=== PATIENT | male | born 2000 | race Caucasian/White ===

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

== ENCOUNTER 2019-03-26 16:47 | Emergency (ER) | payer MEDICAID, OTHER, SELFPAY ==
[~2019-03-26] VITALS: Ht 182.9 cm; Wt 65.7 kg
[~2019-03-26 16:47] MED LIST changes: +BACITRACIN TOP; +CLON-412 PO; +CLONI1TA PO; +COMBAER6 INH; +IBUP1TAB7 PO; -LAMO200T PO; +LAMO200T2 PO; +MINI1CAP PO; +MONT10TA2 PO; -OLAN20TA PO; +OLAN20TA14 PO; +OLAN5ZYD PO; +POLYMYXIN TOP; +PRAZ2CAP PO; +TIZA4CAP PO; +TRAZ-252 PO; +TRAZ1TAB10 PO; -TRAZ50TA11 PO; +ZANA4TAB PO
[2019-03-26 18:06] LABS: HEMATOCRIT 42.8 % (42.0-52.0); HEMOGLOBIN 14.9 g/dl (13.5-17.5); MEAN CORPUSCULAR HEMOGLOBIN 31.8 pg (27.0-33.0); MEAN CORPUSCULAR HGB CONC 34.8 g/dl (32.0-36.5); MEAN CORPUSCULAR VOLUME 91.3 fl (80.0-96.0); PLATELET COUNT, AUTOMATED 232 10^3/uL (150-450); RED BLOOD COUNT 4.69 10^6/uL (4.30-6.10); WHITE BLOOD COUNT 4.5 10^3/uL (4.0-10.0)
[2019-03-26 18:54] LABS: ACETAMINOPHEN LEVEL < 2.0 UG/ML (10.0-30.0); ALBUMIN 4.7 GM/DL (3.2-5.2); ALT/SGPT 31 U/L (12-78); BILIRUBIN,DIRECT 0.3 MG/DL (0.0-0.2); BLOOD UREA NITROGEN 16 MG/DL (7-18); CALCIUM LEVEL 9.7 MG/DL (8.5-10.1); CARBON DIOXIDE LEVEL 27 MEQ/L (21-32); CHLORIDE LEVEL 108 MEQ/L (98-107); CREATININE FOR GFR 1.06 MG/DL (0.70-1.30); ETHYL ALCOHOL (ETHANOL) 0.005 % (0.000-0.010); GLUCOSE, FASTING 87 MG/DL (70-100); POTASSIUM SERUM 4.3 MEQ/L (3.5-5.1); SALICYLATE LEVEL < 1.7 MG/DL (5.0-30.0); SODIUM LEVEL 142 MEQ/L (136-145); THYROID STIMULATING HORMONE 0.321 uIU/ML (0.463-3.98); TOTAL PROTEIN 7.7 GM/DL (6.4-8.2)
[2019-03-26 18:55] VITALS: BP 113/63
== END 2019-03-26 18:57 | disposition home or self-care (01) ==
LOC: M ED 16:47
DX: F15.20 Other stimulant dependence, uncomplicated (principal); F31.9 Bipolar disorder, unspecified; J45.909 Unspecified asthma, uncomplicated; F41.9 Anxiety disorder, unspecified; F90.9 Attention-deficit hyperactivity disorder, unspecified type; Z72.0 Tobacco use; F10.10 Alcohol abuse, uncomplicated
CPT/HCPCS: 80048; 80076; 84443; 85027; 99283; G0480

== ENCOUNTER 2019-03-28 01:16 | Emergency (ER) | payer SELFPAY ==
[~2019-03-28] VITALS: Ht 182.9 cm; Wt 65.9 kg
[2019-03-28 06:58] LABS: EOS # 0.1 10^3/uL (0.0-0.50); EOS % 3.3 % (0.0-3.0); HEMATOCRIT 39.5 % (42.0-52.0); HEMOGLOBIN 13.6 g/dl (13.5-17.5); LYMPH # 1.5 10^3/uL (1.5-6.5); LYMPH % 38.5 % (24.0-44.0); MEAN CORPUSCULAR HEMOGLOBIN 31.8 pg (27.0-33.0); MEAN CORPUSCULAR HGB CONC 34.4 g/dl (32.0-36.5); MEAN CORPUSCULAR VOLUME 92.3 fl (80.0-96.0); MONO # 0.4 10^3/uL (0.0-0.8); NEUTROPHILS # 1.8 10^3/uL (1.8-7.7); NEUTROPHILS % 46.2 % (36.0-66.0); PLATELET COUNT, AUTOMATED 174 10^3/uL (150-450); RED BLOOD COUNT 4.28 10^6/uL (4.30-6.10); WHITE BLOOD COUNT 3.9 10^3/uL (4.0-10.0)
[2019-03-28 07:15] LABS: ERYTHROCYTE SEDIMENTATION RATE 4 mm/hr (0-15)
[2019-03-28 07:22] LABS: BLOOD UREA NITROGEN 15 MG/DL (7-18); C REACTIVE PROTEIN QUANTITATIV < 0.30 MG/DL (0.00-0.30); CALCIUM LEVEL 8.6 MG/DL (8.5-10.1); CARBON DIOXIDE LEVEL 26 MEQ/L (21-32); CHLORIDE LEVEL 111 MEQ/L (98-107); CREATININE FOR GFR 0.95 MG/DL (0.70-1.30); GLUCOSE, FASTING 104 MG/DL (70-100); SODIUM LEVEL 142 MEQ/L (136-145)
--- NOTE | 2019-03-28 07:47 | REP ---
Right knee two views : There is no fracture or dislocation. Mineralization and joint spaces are normal. There are no calcifications or foreign bodies. Impression: Negative right knee . Electronically Signed by Kulwinder Peñaloza MD 03/28/2019 07:39 A
[2019-03-28 07:50] LABS: APPEARANCE, URINE CLEAR (CLEAR); BACTERIA, URINE AUTO 1+ (NEGATIVE); BILIRUBIN, URINE AUTO NEGATIVE (NEGATIVE); BLOOD, URINE BLOOD NEGATIVE (NEGATIVE); COLOR, URINE YELLOW (YELLOW); GLUCOSE, URINE (UA) AUTO NEGATIVE (NEGATIVE); KETONE, URINE AUTO NEGATIVE (NEGATIVE); LEUKOCYTE ESTERASE, URINE AUTO 1+ (NEGATIVE); MUCUS, URINE SMALL (NEGATIVE); NITRITE, URINE AUTO NEGATIVE (NEGATIVE); PROTEIN, URINE AUTO NEGATIVE (NEGATIVE); RBC, URINE AUTO 5 /HPF (0-3); SPECIFIC GRAVITY URINE AUTO 1.025 (1.002-1.035); SQUAMOUS EPITHELIAL CELL UR AU 0 /HPF (0-6); WBC, URINE AUTO 28 /HPF (0-3)
--- NOTE | 2019-03-28 07:56 | REP ---
Right hip single AP view : There is no fracture or dislocation. Mineralization and joint spaces are normal. There are no calcifications or foreign bodies. Impression: Negative right hip single AP view . Electronically Signed by Kulwinder Peñaloza MD 03/28/2019 07:48 A
--- NOTE | 2019-03-28 07:57 | REP ---
Right femur four views including right hip : There is no fracture or dislocation. Mineralization and joint spaces are normal. There are no calcifications or foreign bodies. Impression: Negative right femur including right hip . Electronically Signed by Kulwinder Peñaloza MD 03/28/2019 07:48 A
[2019-03-28 07:58] LABS: AMPHETAMINES LEVEL URINE NEGATIVE (NEGATIVE); BARBITURATES URINE NEGATIVE (NEGATIVE); BENZODIAZEPINES URINE NEGATIVE (NEGATIVE); CANNABINOIDS URINE POSITIVE (NEGATIVE); COCAINE METABOLITE URINE NEGATIVE (NEGATIVE); METHADONE URINE NEGATIVE (NEGATIVE); OPIATES URINE NEGATIVE (NEGATIVE); PHENCYCLIDINE URINE NEGATIVE (NEGATIVE)
[2019-03-28] MEDS ORDERED: MACR100C43 PO (08:40)
[2019-03-28 08:51] VITALS: BP 107/57
== END 2019-03-28 08:48 | disposition home or self-care (01) ==
LOC: M ED 01:16
DX: N39.0 Urinary tract infection, site not specified (principal); S70.01XA Contusion of right hip, initial encounter; S70.11XA Contusion of right thigh, initial encounter; X58.XXXA Exposure to other specified factors, initial encounter; Y92.018 Other place in single-family (private) house as the place of occurrence of the external cause; J45.909 Unspecified asthma, uncomplicated; G89.29 Other chronic pain; M54.9 Dorsalgia, unspecified; F17.210 Nicotine dependence, cigarettes, uncomplicated; F19.20 Other psychoactive substance dependence, uncomplicated

== ENCOUNTER 2019-03-30 13:19 | Emergency (ER) | payer MEDICAID, SELFPAY ==
[~2019-03-30] VITALS: Ht 182.9 cm; Wt 65.7 kg
[~2019-03-30 13:19] MED LIST changes: +MACR100C43 PO
[2019-03-30 23:05] VITALS: BP 122/56
== END 2019-03-30 23:06 | disposition short-term general hospital (02) ==
LOC: M ED 13:19
DX: R45.851 Suicidal ideations (principal); F32.9 Major depressive disorder, single episode, unspecified; F41.9 Anxiety disorder, unspecified; F43.10 Post-traumatic stress disorder, unspecified; F90.9 Attention-deficit hyperactivity disorder, unspecified type; J45.909 Unspecified asthma, uncomplicated; Z79.2 Long term (current) use of antibiotics

== ENCOUNTER 2019-04-11 01:51 | Emergency (ER) | payer MEDICAID, SELFPAY ==
[~2019-04-11 01:51] MED LIST changes: -LAMO200T2 PO; +LAMO200T3 PO
[2019-04-11] MEDS ORDERED: NS 1,000 ML IV ONE (02:15)
[2019-04-11 02:35] LABS: BASO % 0.6 % (0.0-1.0); EOS # 0.1 10^3/uL (0.0-0.50); EOS % 0.9 % (0.0-3.0); HEMATOCRIT 41.3 % (42.0-52.0); LYMPH % 15.9 % (24.0-44.0); MEAN CORPUSCULAR HGB CONC 33.9 g/dl (32.0-36.5); MEAN CORPUSCULAR VOLUME 91.6 fl (80.0-96.0); MONO # 0.3 10^3/uL (0.0-0.8); MONO % 4.7 % (0.0-5.0); NEUTROPHILS % 77.4 % (36.0-66.0); PLATELET COUNT, AUTOMATED 199 10^3/uL (150-450); RED BLOOD COUNT 4.51 10^6/uL (4.30-6.10); WHITE BLOOD COUNT 6.4 10^3/uL (4.0-10.0)
[2019-04-11 03:12] LABS: ACETAMINOPHEN LEVEL < 2.0 UG/ML (10.0-30.0); ALT/SGPT 82 U/L (12-78); BILIRUBIN,DIRECT 0.3 MG/DL (0.0-0.2); BILIRUBIN,TOTAL 0.9 MG/DL (0.2-1.0); BLOOD UREA NITROGEN 11 MG/DL (7-18); CALCIUM LEVEL 8.4 MG/DL (8.5-10.1); CARBON DIOXIDE LEVEL 26 MEQ/L (21-32); CHLORIDE LEVEL 108 MEQ/L (98-107); CPK CREATINE PHOSPHOKINASE 134 U/L (39-308); CREATININE FOR GFR 1.01 MG/DL (0.70-1.30); ETHYL ALCOHOL (ETHANOL) < 0.003 % (0.000-0.010); GLUCOSE, FASTING 169 MG/DL (70-100); POTASSIUM SERUM 3.7 MEQ/L (3.5-5.1); SALICYLATE LEVEL < 1.7 MG/DL (5.0-30.0); SODIUM LEVEL 144 MEQ/L (136-145); TOTAL PROTEIN 6.7 GM/DL (6.4-8.2)
[2019-04-11 04:15] VITALS: BP 120/63
[2019-04-11 05:04] LABS: AMPHETAMINES LEVEL URINE NEGATIVE (NEGATIVE); BARBITURATES URINE NEGATIVE (NEGATIVE); BENZODIAZEPINES URINE NEGATIVE (NEGATIVE); CANNABINOIDS URINE POSITIVE (NEGATIVE); COCAINE METABOLITE URINE NEGATIVE (NEGATIVE); METHADONE URINE NEGATIVE (NEGATIVE); OPIATES URINE NEGATIVE (NEGATIVE); PHENCYCLIDINE URINE NEGATIVE (NEGATIVE)
--- NOTE | 2019-04-11 22:15 | ECGEPIP ---
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
== END 2019-04-11 04:30 | disposition home or self-care (01) ==
LOC: M ED 01:51
DX: F19.10 Other psychoactive substance abuse, uncomplicated (principal); F10.10 Alcohol abuse, uncomplicated; F17.210 Nicotine dependence, cigarettes, uncomplicated
CPT/HCPCS: 36415; 80048; 80076; 80307; 82550; 84443; 85025; 93005; 93041; 94760; 99285; G0480

== ENCOUNTER 2019-07-05 13:46 | Emergency (ER) | payer MEDICAID, OTHER ==
[~2019-07-05] VITALS: Ht 182.9 cm; Wt 79.0 kg
[~2019-07-05 13:46] MED LIST changes: +LAMO200T2 PO; -LAMO200T3 PO
[2019-07-05 14:25] LABS: BASO % 0.4 % (0.0-1.0); EOS # 0.2 10^3/uL (0.0-0.5); EOS % 2.2 % (0.0-3.0); HEMATOCRIT 47.3 % (42.0-52.0); HEMOGLOBIN 15.9 g/dl (13.5-17.5); LYMPH # 1.3 10^3/uL (1.5-5.0); LYMPH % 16.9 % (24.0-44.0); MEAN CORPUSCULAR HEMOGLOBIN 30.6 pg (27.0-33.0); MEAN CORPUSCULAR HGB CONC 33.6 g/dl (32.0-36.5); MONO # 0.5 10^3/uL (0.0-0.8); NEUTROPHILS # 5.6 10^3/uL (1.5-8.5); PLATELET COUNT, AUTOMATED 221 10^3/uL (150-450); WHITE BLOOD COUNT 7.7 10^3/uL (4.0-10.0)
[2019-07-05 14:55] LABS: ALBUMIN 4.3 GM/DL (3.2-5.2); ALT/SGPT 56 U/L (12-78); AMYLASE 33 U/L (25-115); BILIRUBIN,DIRECT 0.3 MG/DL (0.0-0.2); BILIRUBIN,TOTAL 1.6 MG/DL (0.2-1.0); BLOOD UREA NITROGEN 14 MG/DL (7-18); CALCIUM LEVEL 9.3 MG/DL (8.5-10.1); CARBON DIOXIDE LEVEL 28 MEQ/L (21-32); CHLORIDE LEVEL 109 MEQ/L (98-107); CREATININE FOR GFR 0.92 MG/DL (0.70-1.30); GLUCOSE, FASTING 85 MG/DL (70-100); LIPASE 72 U/L (73-393); POTASSIUM SERUM 4.2 MEQ/L (3.5-5.1); SODIUM LEVEL 143 MEQ/L (136-145); TOTAL PROTEIN 7.4 GM/DL (6.4-8.2)
[2019-07-05 14:56] LABS: ETHYL ALCOHOL (ETHANOL) < 0.003 % (0.000-0.010)
[2019-07-05 14:58] LABS: AMPHETAMINES LEVEL URINE NEGATIVE (NEGATIVE); BARBITURATES URINE NEGATIVE (NEGATIVE); BENZODIAZEPINES URINE NEGATIVE (NEGATIVE); CANNABINOIDS URINE POSITIVE (NEGATIVE); COCAINE METABOLITE URINE NEGATIVE (NEGATIVE); METHADONE URINE NEGATIVE (NEGATIVE); OPIATES URINE NEGATIVE (NEGATIVE); PHENCYCLIDINE URINE NEGATIVE (NEGATIVE)
--- NOTE | 2019-07-05 15:08 | REP ---
LEFT RIB SERIES: Four views, left ribs performed. No fracture or bone lesion is seen. An accompanying view of the chest demonstrates no acute infiltrate. Heart and mediastinum are within normal limits. IMPRESSION: Negative left rib series. Electronically Signed by Kulwinder Garcia MD 07/05/2019 05:19 P
[2019-07-05] MEDS ORDERED: HYDR-3363 (15:10)
[2019-07-05] MEDS ORDERED: ABIL1TAB11 PO (15:10)
[2019-07-05] MEDS ORDERED: ELIM5CRE2 TOP (15:16)
[2019-07-05] MEDS ORDERED: VENTAER INH (15:18)
[2019-07-05 16:49] VITALS: BP 138/74
--- NOTE | 2019-07-05 17:58 | ECGEPIP ---
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
== END 2019-07-05 16:52 | disposition home or self-care (01) ==
LOC: M ED 13:46
DX: F19.10 Other psychoactive substance abuse, uncomplicated (principal); F41.9 Anxiety disorder, unspecified; B86 Scabies; J45.909 Unspecified asthma, uncomplicated; F31.9 Bipolar disorder, unspecified; F43.10 Post-traumatic stress disorder, unspecified; F90.9 Attention-deficit hyperactivity disorder, unspecified type; F25.9 Schizoaffective disorder, unspecified; Z79.899 Other long term (current) drug therapy
CPT/HCPCS: 36415; 71101; 80048; 80076; 80307; 82150; 83690; 85025; 93005; 99284; G0480

== ENCOUNTER 2019-07-12 17:23 | Emergency (ER) | payer OTHER ==
[~2019-07-12] VITALS: Ht 182.9 cm; Wt 78.9 kg
[2019-07-12 17:23] VITALS: BP 134/78
[~2019-07-12 17:23] MED LIST changes: +ABIL1TAB11 PO; +ELIM5CRE2 TOP; +HYDR-3363
--- NOTE | 2019-07-12 20:39 | ED PDOC ---
Post-Departure Follow-Up PATIENT LEFT WITHOUT BEING SEEN BY PROVIDER WALLY MARADIAGA DO Jul 12, 2019 20:39
== END 2019-07-12 20:19 | disposition left against medical advice (07) ==
LOC: M ED 17:23
DX: Z53.21 Procedure and treatment not carried out due to patient leaving prior to being seen by health care provider (principal)

== ENCOUNTER 2019-07-29 00:51 | Emergency (ER) | payer OTHER ==
[~2019-07-29] VITALS: Ht 182.9 cm; Wt 84.2 kg
[2019-07-29] MEDS ORDERED: IBUPROFEN 600 MG TAB PO ONE (01:15)
[2019-07-29 02:36] VITALS: BP 114/70
--- NOTE | 2019-07-29 08:39 | REP ---
Right hand series: Four views. History: Punching injury. Comparison study: July 22, 2017. Findings: There is an impacted angulated fracture of the distal end of the fifth metacarpal with associated soft-tissue swelling. The angulation is apex dorsal. No other fracture is seen. No opaque foreign body is appreciated. Impression: Impacted and angulated boxer's fracture of the distal end of the fifth metacarpal with associated soft-tissue swelling. Electronically Signed by Abdulkadir Hagan MD 07/29/2019 03:30 P
--- NOTE | 2019-07-29 08:53 | REP ---
Right wrist series: Four views. History: Punching injury. Findings: Four views of the right wrist demonstrate the impacted angulated and slightly comminuted fracture of the distal end of the fifth metacarpal as described in the hand series report. Carpal bones appear intact. Joint spaces are preserved. No other fracture is seen. Impression: Boxer's fracture. No other fracture noted. Electronically Signed by Abdulkadir Hagan MD 07/29/2019 03:31 P
== END 2019-07-29 02:42 | disposition home or self-care (01) ==
LOC: M ED 00:51
DX: S62.366A Nondisplaced fracture of neck of fifth metacarpal bone, right hand, initial encounter for closed fracture (principal); S60.221A Contusion of right hand, initial encounter; W22.09XA Striking against other stationary object, initial encounter; Y92.811 Bus as the place of occurrence of the external cause; F41.9 Anxiety disorder, unspecified; F32.9 Major depressive disorder, single episode, unspecified; J45.909 Unspecified asthma, uncomplicated; F90.9 Attention-deficit hyperactivity disorder, unspecified type; F43.10 Post-traumatic stress disorder, unspecified; F20.9 Schizophrenia, unspecified; F17.210 Nicotine dependence, cigarettes, uncomplicated

== ENCOUNTER 2024-02-11 18:24 | Inpatient (IN) | payer MEDICAID, OTHER, SELFPAY ==
[~2024-02-11] VITALS: Ht 182.9 cm; Wt 82.7 kg
[~2024-02-11 18:24] MED LIST changes: -LAMO200T2 PO; +LAMO200T3 PO; +MONT-5 PO; -MONT10TA2 PO; +MONT10TA97 PO; -SING10TA32 PO
[2024-02-11 19:47] LABS: HEMATOCRIT 46.7 % (42.0-52.0); HEMOGLOBIN 16.3 g/dl (13.5-17.5); MEAN CORPUSCULAR HGB CONC 34.9 g/dl (32.0-36.5); PLATELET COUNT, AUTOMATED 267 10^3/uL (150-450); RED BLOOD COUNT 5.25 10^6/uL (4.30-6.10)
[2024-02-11 20:11] LABS: THYROID STIMULATING HORMONE 0.516 uIU/ML (0.55-4.78)
[2024-02-11 20:14] LABS: ETHYL ALCOHOL (ETHANOL) 0.004 % (0.000-0.010)
[2024-02-11 20:16] LABS: ALBUMIN 4.5 G/DL (3.2-5.2); ALKALINE PHOSPHATASE 114 U/L (46-116); ALT/SGPT 25 U/L (7.0-40); AST/SGOT 8 U/L (<34); BILIRUBIN,TOTAL 3.1 MG/DL (0.3-1.2); BLOOD UREA NITROGEN 17 MG/DL (9-23); CALCIUM LEVEL 9.7 MG/DL (8.5-10.1); CARBON DIOXIDE LEVEL 29 MMOL/L (20-31); CHLORIDE LEVEL 107 MMOL/L (98-107); CREATININE FOR GFR 1.04 MG/DL (0.70-1.30); GLOMERULAR FILTRATION RATE > 60.0 (>60); GLUCOSE, FASTING 114 MG/DL (60-100); POTASSIUM SERUM 4.1 MMOL/L (3.5-5.1); SALICYLATE LEVEL < 3.0 MG/DL (<30); SODIUM LEVEL 141 MMOL/L (136-145); TOTAL PROTEIN 7.2 G/DL (5.7-8.2)
[2024-02-11 20:17] LABS: AMPHETAMINES LEVEL URINE NEGATIVE (NEGATIVE); BARBITURATES URINE NEGATIVE (NEGATIVE); BENZODIAZEPINES URINE NEGATIVE (NEGATIVE); COCAINE METABOLITE URINE NEGATIVE (NEGATIVE); METHADONE URINE NEGATIVE (NEGATIVE); OPIATES URINE NEGATIVE (NEGATIVE); PHENCYCLIDINE URINE NEGATIVE (NEGATIVE)
[2024-02-11 20:20] LABS: CANNABINOIDS URINE POSITIVE (NEGATIVE)
[2024-02-11] MEDS ORDERED: diphenhydrAMINE 25MG CAP PO PRN (22:00)
[2024-02-11] MEDS ORDERED: MOM 30ML SUSPENSION UDC PO PRN (22:00)
[2024-02-11] MEDS ORDERED: ACETAMINOPHEN TAB 650MG DOSE (2X325MG) PO PRN (22:00)
[2024-02-11] MEDS ORDERED: MAALOX 30 ML SUSP *UDC PO PRN (22:00)
[2024-02-11] MEDS ORDERED: IBUPROFEN 400MG TAB PO PRN (22:00)
[2024-02-11] MEDS ORDERED: VRAY6CAP PO (22:24)
[2024-02-11] MEDS ORDERED: PRAZ1CAP PO (22:29)
[2024-02-11] MEDS ORDERED: CLON1TAB17 PO (22:32)
[2024-02-11] MEDS ORDERED: HOME MED LIST COMPLETE! XX SCH (22:55)
[2024-02-11 23:41] VITALS: BP 127/69; TEMP 98.1; O2SAT 98
[2024-02-11] MEDS: traZODone 50 MG TAB PO PRN (23:50)
[2024-02-12 06:57] VITALS: BP 110/59; TEMP 97.3; O2SAT 98
[2024-02-12] MEDS: NICOTINE POLACRILEX 2 MG GUM PO PRN (11:44)
[2024-02-12 16:20] VITALS: BP 108/62; TEMP 97.4
[2024-02-12] MEDS: CARIPRAZINE 1.5MG CAPSULE (VRAYLAR) PO SCH (21:01)
[2024-02-12] MEDS: IBUPROFEN 800 MG TAB PO PRN (21:01)
[2024-02-12] MEDS: PRAZOSIN 1 MG CAP PO SCH (21:03)
[2024-02-12] MEDS: hydrOXYzine 50 MG TAB PO ONE (22:54)
[2024-02-13 06:39] VITALS: BP 134/58; TEMP 97.8; O2SAT 100
[2024-02-13 07:59] LABS: CHOLESTEROL RISK RATIO 6.34 (<5); CPK CREATINE PHOSPHOKINASE 64 U/L (46-171); FREE T4 1.23 NG/DL (0.89-1.76); HDL CHOLESTEROL 25.7 MG/DL (>40); LDL CHOLESTEROL 115.1 MG/DL (<100); NON-HDL-C 137.3 MG/DL; THYROID STIMULATING HORMONE 1.691 uIU/ML (0.55-4.78)
[2024-02-13 08:00] LABS: ALBUMIN 4.2 G/DL (3.2-5.2); BILIRUBIN,TOTAL 3.3 MG/DL (0.3-1.2); TOTAL PROTEIN 6.8 G/DL (5.7-8.2)
[2024-02-13] MEDS: OMEGA-3 1000MG CAPSULE PO SCH (09:22)
[2024-02-13 09:38] LABS: ALBUMIN 4.4 G/DL (3.2-5.2); ALKALINE PHOSPHATASE 106 U/L (46-116); ALT/SGPT 28 U/L (7.0-40); AST/SGOT 12 U/L (<34); BILIRUBIN,TOTAL 3.4 MG/DL (0.3-1.2); BLOOD UREA NITROGEN 16 MG/DL (9-23); CALCIUM LEVEL 9.9 MG/DL (8.5-10.1); CARBON DIOXIDE LEVEL 26 MMOL/L (20-31); CHLORIDE LEVEL 106 MMOL/L (98-107); CREATININE FOR GFR 0.98 MG/DL (0.70-1.30); GLOMERULAR FILTRATION RATE > 60.0 (>60); GLUCOSE, FASTING 102 MG/DL (60-100); POTASSIUM SERUM 4.3 MMOL/L (3.5-5.1); SODIUM LEVEL 138 MMOL/L (136-145); TOTAL PROTEIN 6.8 G/DL (5.7-8.2)
[2024-02-13 15:59] VITALS: BP 125/66; TEMP 96.9; O2SAT 98
[2024-02-13 21:12] VITALS: BP 120/74
[2024-02-13] MEDS: CARIPRAZINE 3MG CAPSULE (VRAYLAR) PO SCH (21:12)
[2024-02-14 06:13] VITALS: BP 125/57; TEMP 98.4; O2SAT 97
[2024-02-14] MEDS ORDERED: FISH1CAP26 PO (10:46)
[2024-02-14] MEDS ORDERED: VRAY3CAP PO (10:46)
[2024-02-14] MEDS ORDERED: TRAZ-252 PO (10:46)
[2024-02-14] MEDS ORDERED: PRAZ1CAP PO (10:46)
[2024-02-14] MEDS ORDERED: NICO2GUM PO (10:46)
== END 2024-02-14 11:15 | disposition home or self-care (01) | DRG 753 ==
LOC: M ED 18:24 → M ED INP 21:57 → M PSY 23:13
PROVIDERS: ADMIT Student in an Organized Health Care Education/Training Program; ATTEND Student in an Organized Health Care Education/Training Program
DX: F31.60 Bipolar disorder, current episode mixed, unspecified (principal); Z91.141 Patient's other noncompliance with medication regimen due to financial hardship; F17.210 Nicotine dependence, cigarettes, uncomplicated; F43.10 Post-traumatic stress disorder, unspecified; F90.9 Attention-deficit hyperactivity disorder, unspecified type; F17.290 Nicotine dependence, other tobacco product, uncomplicated; Z81.8 Family history of other mental and behavioral disorders; T43.596A Underdosing of other antipsychotics and neuroleptics, initial encounter; J45.909 Unspecified asthma, uncomplicated; F12.10 Cannabis abuse, uncomplicated; M22.01 Recurrent dislocation of patella, right knee; R07.89 Other chest pain; Z79.899 Other long term (current) drug therapy; Z88.0 Allergy status to penicillin; Z88.8 Allergy status to other drugs, medicaments and biological substances; Z81.3 Family history of other psychoactive substance abuse and dependence; Z62.810 Personal history of physical and sexual abuse in childhood; Z56.6 Other physical and mental strain related to work; Z91.048 Other nonmedicinal substance allergy status

== ENCOUNTER 2024-03-06 15:28 | Emergency (ER) | payer MEDICAID ==
[~2024-03-06] VITALS: Ht 182.9 cm; Wt 86.4 kg
[~2024-03-06 15:28] MED LIST changes: +CLON1TAB17 PO; +FISH1CAP26 PO; +NICO2GUM PO; +VRAY3CAP PO; +VRAY6CAP PO
[2024-03-06 15:37] VITALS: BP 130/71; TEMP 99.6; O2SAT 96
== END 2024-03-06 16:08 | disposition left against medical advice (07) ==
LOC: EDBD 15:28 → M ED 15:28
DX: Z53.21 Procedure and treatment not carried out due to patient leaving prior to being seen by health care provider (principal)

== ENCOUNTER 2024-06-14 11:00 | Inpatient (IN) | payer MEDICAID, OTHER ==
[~2024-06-14] VITALS: Ht 182.9 cm; Wt 86.4 kg
[~2024-06-14 11:00] MED LIST changes: -OLAN20TA14 PO; +OLAN20TA53 PO
[2024-06-14 11:52] LABS: HEMATOCRIT 40.4 % (42.0-52.0); HEMOGLOBIN 14.4 g/dl (13.5-17.5); MEAN CORPUSCULAR HEMOGLOBIN 31.9 pg (27.0-33.0); MEAN CORPUSCULAR HGB CONC 35.6 g/dl (32.0-36.5); MEAN CORPUSCULAR VOLUME 89.4 fl (80.0-96.0); PLATELET COUNT, AUTOMATED 294 10^3/uL (150-450); RED BLOOD COUNT 4.52 10^6/uL (4.30-6.10); WHITE BLOOD COUNT 11.3 10^3/uL (4.0-10.0)
[2024-06-14 12:15] LABS: ETHYL ALCOHOL (ETHANOL) < 0.003 % (0.000-0.010)
[2024-06-14 12:17] LABS: ALKALINE PHOSPHATASE 75 U/L (46-116); ALT/SGPT 65 U/L (7.0-40); AST/SGOT 92 U/L (<34); BILIRUBIN,DIRECT 1.5 MG/DL (<0.4); BILIRUBIN,TOTAL 4.1 MG/DL (0.3-1.2); BLOOD UREA NITROGEN 25 MG/DL (9-23); CALCIUM LEVEL 9.9 MG/DL (8.5-10.1); CARBON DIOXIDE LEVEL 17 MMOL/L (20-31); CHLORIDE LEVEL 104 MMOL/L (98-107); CREATININE FOR GFR 1.05 MG/DL (0.70-1.30); GLOMERULAR FILTRATION RATE > 60.0 (>60); GLUCOSE, FASTING 72 MG/DL (60-100); POTASSIUM SERUM 4.5 MMOL/L (3.5-5.1); SALICYLATE LEVEL < 3.0 MG/DL (<30); SODIUM LEVEL 138 MMOL/L (136-145); TOTAL PROTEIN 7.8 G/DL (5.7-8.2)
[2024-06-14 12:21] LABS: THYROID STIMULATING HORMONE 0.353 uIU/ML (0.55-4.78)
[2024-06-14 12:27] LABS: BARBITURATES URINE NEGATIVE (NEGATIVE); BENZODIAZEPINES URINE NEGATIVE (NEGATIVE); COCAINE METABOLITE URINE NEGATIVE (NEGATIVE); METHADONE URINE NEGATIVE (NEGATIVE); OPIATES URINE NEGATIVE (NEGATIVE); PHENCYCLIDINE URINE NEGATIVE (NEGATIVE)
[2024-06-14 12:29] LABS: AMPHETAMINES LEVEL URINE POSITIVE (NEGATIVE); CANNABINOIDS URINE POSITIVE (NEGATIVE)
[2024-06-14] MEDS ORDERED: CLIN150C17 PO (13:41)
[2024-06-14] MEDS ORDERED: HOME MED LIST COMPLETE! XX SCH (13:45)
[2024-06-14] MEDS ORDERED: ONDANSETRON 4MG 2ML VIAL IV ONE (14:40)
[2024-06-14 15:19] LABS: CPK CREATINE PHOSPHOKINASE 2023 U/L (46-171)
[2024-06-14] MEDS: NS 1,000 ML IV ONE (16:56)
[2024-06-15] MEDS: CARIPRAZINE 3MG CAPSULE (VRAYLAR) PO SCH (09:00)
[2024-06-15] MEDS ORDERED: ACETAMINOPHEN TAB 650MG DOSE (2X325MG) PO PRN (10:55)
[2024-06-15] MEDS ORDERED: MAALOX 30 ML SUSP *UDC PO PRN (10:55)
[2024-06-15] MEDS ORDERED: diphenhydrAMINE 25MG CAP PO PRN (10:55)
[2024-06-15] MEDS ORDERED: MOM 30ML SUSPENSION UDC PO PRN (10:55)
[2024-06-15 12:08] VITALS: BP 127/71; TEMP 97; O2SAT 99
[2024-06-15] MEDS: NICOTINE POLACRILEX 2 MG GUM PO PRN (15:24)
[2024-06-15 15:46] VITALS: BP 132/80; TEMP 98.4; O2SAT 98
[2024-06-15] MEDS: PRAZOSIN 1 MG CAP PO SCH (20:22)
[2024-06-15] MEDS: traZODone 50 MG TAB PO PRN (20:22)
[2024-06-16 06:20] VITALS: BP 132/65; TEMP 97.6; O2SAT 98
[2024-06-16] MEDS: IBUPROFEN 400MG TAB PO PRN (10:22)
[2024-06-16 15:23] VITALS: BP 142/83; TEMP 97.3; O2SAT 98
[2024-06-17 06:46] VITALS: BP 122/59; TEMP 97.9; O2SAT 100
[2024-06-17 16:20] VITALS: BP 141/67; TEMP 98.6; O2SAT 98
[2024-06-17] MEDS: OLANZapine ORAL DISINTEGRATING TAB 5MG PO PRN (18:19)
[2024-06-17 21:14] VITALS: BP 135/71
[2024-06-18 06:30] VITALS: BP 127/56; TEMP 97.3; O2SAT 98
[2024-06-18] MEDS ORDERED: PRAZ1CAP PO (09:40)
[2024-06-18] MEDS ORDERED: VRAY6CAP PO (09:40)
== END 2024-06-18 11:05 | disposition home or self-care (01) | DRG 751 ==
LOC: M ED 11:00 → M ED INP 06-15 10:51 → M PSY 06-15 12:25
PROVIDERS: ADMIT Psychiatry & Neurology Psychiatry; ATTEND Psychiatry & Neurology Psychiatry
DX: F33.9 Major depressive disorder, recurrent, unspecified (principal); F15.90 Other stimulant use, unspecified, uncomplicated; R45.851 Suicidal ideations; F17.210 Nicotine dependence, cigarettes, uncomplicated; F17.290 Nicotine dependence, other tobacco product, uncomplicated; F43.10 Post-traumatic stress disorder, unspecified; J45.909 Unspecified asthma, uncomplicated; G89.29 Other chronic pain; M25.569 Pain in unspecified knee; F90.9 Attention-deficit hyperactivity disorder, unspecified type; Z81.8 Family history of other mental and behavioral disorders; Z62.810 Personal history of physical and sexual abuse in childhood; Z79.2 Long term (current) use of antibiotics; Z79.899 Other long term (current) drug therapy; Z88.1 Allergy status to other antibiotic agents; Z88.8 Allergy status to other drugs, medicaments and biological substances; Z91.048 Other nonmedicinal substance allergy status; Z91.51 Personal history of suicidal behavior; Z59.00 Homelessness unspecified

== ENCOUNTER 2024-06-27 21:57 | Emergency (ER) | payer MEDICAID, OTHER ==
[~2024-06-27] VITALS: Ht 182.9 cm; Wt 77.0 kg
[~2024-06-27 21:57] MED LIST changes: +CLIN150C17 PO
[2024-06-27 22:14] VITALS: TEMP 99.5
[2024-06-27] MEDS: NS 1,000 ML IV ONE (23:32)
[2024-06-27] MEDS: LORazepam 2 MG/ML 1ML VIAL IV STA (23:32)
[2024-06-28 00:25] LABS: BASO # 0.1 10^3/uL (0.0-0.2); BASO % 0.8 % (0.0-1.0); EOS # 0.1 10^3/uL (0.0-0.5); EOS % 1.8 % (0.0-3.0); HEMOGLOBIN 14.8 g/dl (13.5-17.5); LYMPH # 1.6 10^3/uL (1.5-5.0); LYMPH % 26.4 % (24.0-44.0); MEAN CORPUSCULAR HEMOGLOBIN 31.6 pg (27.0-33.0); MEAN CORPUSCULAR HGB CONC 35.2 g/dl (32.0-36.5); MEAN CORPUSCULAR VOLUME 89.7 fl (80.0-96.0); MONO # 0.8 10^3/uL (0.0-0.8); MONO % 12.5 % (2.0-8.0); NEUTROPHILS # 3.5 10^3/uL (1.5-8.5); NEUTROPHILS % 58.2 % (36.0-66.0); PLATELET COUNT, AUTOMATED 276 10^3/uL (150-450); RED BLOOD COUNT 4.68 10^6/uL (4.30-6.10); WHITE BLOOD COUNT 6.1 10^3/uL (4.0-10.0)
[2024-06-28 00:37] LABS: ETHYL ALCOHOL (ETHANOL) 0.005 % (0.000-0.010)
[2024-06-28 00:38] LABS: ALBUMIN 4.2 G/DL (3.2-5.2); ALKALINE PHOSPHATASE 78 U/L (46-116); ALT/SGPT 50 U/L (7.0-40); AST/SGOT 26 U/L (<34); BILIRUBIN,TOTAL 2.8 MG/DL (0.3-1.2); BLOOD UREA NITROGEN 18 MG/DL (9-23); CARBON DIOXIDE LEVEL 25 MMOL/L (20-31); CHLORIDE LEVEL 107 MMOL/L (98-107); CREATININE FOR GFR 0.89 MG/DL (0.70-1.30); GLOMERULAR FILTRATION RATE > 60.0 (>60); GLUCOSE, FASTING 98 MG/DL (60-100); POTASSIUM SERUM 3.5 MMOL/L (3.5-5.1); SALICYLATE LEVEL < 3.0 MG/DL (<30); SODIUM LEVEL 140 MMOL/L (136-145); TOTAL PROTEIN 6.9 G/DL (5.7-8.2)
[2024-06-28 01:13] LABS: CPK CREATINE PHOSPHOKINASE 287 U/L (46-171)
[2024-06-28 01:38] LABS: CK-MB VALUE MASS 3.8 NG/ML (<3.6); MB/CK RELATIVE INDEX 1.32 (< OR =4)
[2024-06-28 06:00] VITALS: BP 123/63; O2SAT 96
== END 2024-06-28 06:47 | disposition home or self-care (01) ==
LOC: M ED 21:57
DX: R07.89 Other chest pain (principal); R94.31 Abnormal electrocardiogram [ECG] [EKG]; J45.909 Unspecified asthma, uncomplicated; F17.210 Nicotine dependence, cigarettes, uncomplicated; F15.10 Other stimulant abuse, uncomplicated; Z88.1 Allergy status to other antibiotic agents; Z91.048 Other nonmedicinal substance allergy status; Z79.2 Long term (current) use of antibiotics; Z79.899 Other long term (current) drug therapy
CPT/HCPCS: 80048; 80076; 80143; 82077; 82550; 82553; 84484; 85025; 93005; 96361; 96374; 99285; J2060

== ENCOUNTER 2024-07-09 08:09 | Emergency (ER) | payer OTHER ==
[~2024-07-09] VITALS: Ht 182.9 cm; Wt 79.9 kg
[2024-07-09 08:28] VITALS: BP 129/75; TEMP 98.2; O2SAT 98
== END 2024-07-09 09:03 | disposition left against medical advice (07) ==
LOC: M ED 08:09
DX: Z53.21 Procedure and treatment not carried out due to patient leaving prior to being seen by health care provider (principal)

== ENCOUNTER 2024-07-10 00:38 | Emergency (ER) | payer OTHER ==
[~2024-07-10] VITALS: Ht 182.9 cm; Wt 81.8 kg
[2024-07-10] MEDS: IBUPROFEN 600MG TAB PO ONE (01:10)
[2024-07-10 01:32] LABS: HEMATOCRIT 43.6 % (42.0-52.0); MEAN CORPUSCULAR HEMOGLOBIN 32.2 pg (27.0-33.0); MEAN CORPUSCULAR HGB CONC 34.4 g/dl (32.0-36.5); MEAN CORPUSCULAR VOLUME 93.6 fl (80.0-96.0); PLATELET COUNT, AUTOMATED 260 10^3/uL (150-450); RED BLOOD COUNT 4.66 10^6/uL (4.30-6.10); WHITE BLOOD COUNT 9.1 10^3/uL (4.0-10.0)
[2024-07-10 01:48] LABS: ETHYL ALCOHOL (ETHANOL) < 0.003 % (0.000-0.010)
[2024-07-10 01:49] LABS: SALICYLATE LEVEL < 3.0 MG/DL (<30)
[2024-07-10 01:50] LABS: ALBUMIN 4.5 G/DL (3.2-5.2); ALKALINE PHOSPHATASE 80 U/L (40-129); ALT/SGPT 82 U/L (7.0-40); AST/SGOT 57 U/L (<34); BILIRUBIN,DIRECT 0.6 MG/DL (<0.4); BILIRUBIN,TOTAL 5.6 MG/DL (0.3-1.2); BLOOD UREA NITROGEN 33 MG/DL (9-23); CALCIUM LEVEL 10.4 MG/DL (8.5-10.1); CARBON DIOXIDE LEVEL 23 MMOL/L (20-31); CHLORIDE LEVEL 103 MMOL/L (98-107); CREATININE FOR GFR 0.88 MG/DL (0.70-1.30); GLOMERULAR FILTRATION RATE > 60.0 (>60); GLUCOSE, FASTING 87 MG/DL (60-100); POTASSIUM SERUM 4.5 MMOL/L (3.5-5.1); SODIUM LEVEL 136 MMOL/L (136-145); TOTAL PROTEIN 7.6 G/DL (5.7-8.2)
[2024-07-10 01:52] LABS: THYROID STIMULATING HORMONE 0.681 uIU/ML (0.55-4.78)
[2024-07-10 09:06] LABS: BARBITURATES URINE NEGATIVE (NEGATIVE)
[2024-07-10 09:07] LABS: BENZODIAZEPINES URINE NEGATIVE (NEGATIVE); COCAINE METABOLITE URINE NEGATIVE (NEGATIVE); METHADONE URINE NEGATIVE (NEGATIVE); OPIATES URINE NEGATIVE (NEGATIVE); PHENCYCLIDINE URINE NEGATIVE (NEGATIVE)
[2024-07-10 09:12] LABS: AMPHETAMINES LEVEL URINE POSITIVE (NEGATIVE); CANNABINOIDS URINE POSITIVE (NEGATIVE)
[2024-07-10 11:46] VITALS: BP 113/75; TEMP 97; O2SAT 100
[2024-07-10] MEDS: LORazepam 2 MG TAB PO STA (12:29)
[2024-07-10] MEDS ORDERED: HOME MED LIST COMPLETE! XX SCH (13:40)
[2024-07-10] MEDS ORDERED: OVERDOSE RESCUE KIT XX SCH (14:15)
== END 2024-07-10 14:29 | disposition home or self-care (01) ==
LOC: M ED 00:38
DX: F15.14 Other stimulant abuse with stimulant-induced mood disorder (principal); F31.9 Bipolar disorder, unspecified; F32.A Depression, unspecified; F43.10 Post-traumatic stress disorder, unspecified; F90.9 Attention-deficit hyperactivity disorder, unspecified type; F17.210 Nicotine dependence, cigarettes, uncomplicated; F10.10 Alcohol abuse, uncomplicated; Z88.1 Allergy status to other antibiotic agents; Z91.048 Other nonmedicinal substance allergy status; Z79.899 Other long term (current) drug therapy

== ENCOUNTER 2024-07-10 22:41 | Inpatient (IN) | payer OTHER ==
[~2024-07-10] VITALS: Ht 182.9 cm; Wt 78.6 kg
[2024-07-10 23:49] LABS: BASO % 0.4 % (0.0-1.0); EOS # 0.1 10^3/uL (0.0-0.5); EOS % 1.1 % (0.0-3.0); HEMATOCRIT 38.7 % (42.0-52.0); HEMOGLOBIN 13.6 g/dl (13.5-17.5); LYMPH % 14.4 % (24.0-44.0); MEAN CORPUSCULAR HEMOGLOBIN 31.9 pg (27.0-33.0); MEAN CORPUSCULAR HGB CONC 35.1 g/dl (32.0-36.5); MEAN CORPUSCULAR VOLUME 90.6 fl (80.0-96.0); MONO # 0.9 10^3/uL (0.0-0.8); MONO % 12.9 % (2.0-8.0); NEUTROPHILS # 5.1 10^3/uL (1.5-8.5); NEUTROPHILS % 70.9 % (36.0-66.0); PLATELET COUNT, AUTOMATED 221 10^3/uL (150-450); RED BLOOD COUNT 4.27 10^6/uL (4.30-6.10); WHITE BLOOD COUNT 7.1 10^3/uL (4.0-10.0)
[2024-07-11 00:10] LABS: ETHYL ALCOHOL (ETHANOL) < 0.003 % (0.000-0.010)
[2024-07-11 00:11] LABS: CPK CREATINE PHOSPHOKINASE 404 U/L (46-171)
[2024-07-11 00:12] LABS: SALICYLATE LEVEL < 3.0 MG/DL (<30)
[2024-07-11 00:14] LABS: THYROID STIMULATING HORMONE 0.273 uIU/ML (0.55-4.78)
[2024-07-11 00:15] LABS: ALBUMIN 3.8 G/DL (3.2-5.2); ALKALINE PHOSPHATASE 64 U/L (40-129); ALT/SGPT 72 U/L (7.0-40); AST/SGOT 42 U/L (<34); BILIRUBIN,DIRECT 0.8 MG/DL (<0.4); BILIRUBIN,TOTAL 3.4 MG/DL (0.3-1.2); BLOOD UREA NITROGEN 25 MG/DL (9-23); CALCIUM LEVEL 9.1 MG/DL (8.5-10.1); CARBON DIOXIDE LEVEL 27 MMOL/L (20-31); CHLORIDE LEVEL 105 MMOL/L (98-107); CREATININE FOR GFR 0.83 MG/DL (0.70-1.30); GLOMERULAR FILTRATION RATE > 60.0 (>60); GLUCOSE, FASTING 107 MG/DL (60-100); POTASSIUM SERUM 3.6 MMOL/L (3.5-5.1); SODIUM LEVEL 136 MMOL/L (136-145); TOTAL PROTEIN 6.4 G/DL (5.7-8.2)
[2024-07-11 01:14] LABS: BARBITURATES URINE NEGATIVE (NEGATIVE); BENZODIAZEPINES URINE NEGATIVE (NEGATIVE); COCAINE METABOLITE URINE NEGATIVE (NEGATIVE); METHADONE URINE NEGATIVE (NEGATIVE); OPIATES URINE NEGATIVE (NEGATIVE)
[2024-07-11 01:15] LABS: PHENCYCLIDINE URINE NEGATIVE (NEGATIVE)
[2024-07-11 01:26] LABS: AMPHETAMINES LEVEL URINE POSITIVE (NEGATIVE); CANNABINOIDS URINE POSITIVE (NEGATIVE)
[2024-07-11] MEDS ORDERED: HOME MED LIST COMPLETE! XX SCH (08:30)
[2024-07-11] MEDS ORDERED: ACETAMINOPHEN 325 MG TAB PO PRN (12:50)
[2024-07-11] MEDS ORDERED: MOM 30ML SUSPENSION UDC PO PRN (12:50)
[2024-07-11] MEDS ORDERED: MAALOX 30 ML SUSP *UDC PO PRN (12:50)
[2024-07-11 15:32] VITALS: BP 124/74; TEMP 97.4; O2SAT 99
[2024-07-11] MEDS: NICOTINE POLACRILEX 2 MG GUM PO PRN (15:47)
[2024-07-11] MEDS: traZODone 50 MG TAB PO PRN (21:01)
[2024-07-12] MEDS: diphenhydrAMINE 25MG CAP PO PRN (00:05)
[2024-07-12 14:49] VITALS: BP 138/73; TEMP 97.3; O2SAT 98
[2024-07-12] MEDS ORDERED: ALBUTEROL SULFATE 2.5MG/0.5ML INH NEB SOLN INH PRN (15:20)
[2024-07-12] MEDS: CARIPRAZINE 3MG CAPSULE (VRAYLAR) PO SCH (15:48)
[2024-07-12] MEDS: ALBUTEROL SULFATE 2.5MG/0.5ML INH NEB SOLN INH SCH (16:22)
[2024-07-12] MEDS ORDERED: IPRATROPIUM 0.5MG/ALBUTEROL 2.5MG INH SOL UD 3ML (DUONEB) NEB PRN (18:15)
[2024-07-12] MEDS: ALBUTEROL 90 MCG/ACT 8GM HFA INHALER INH SCH (20:00)
[2024-07-12] MEDS: PRAZOSIN 1 MG CAP PO SCH (21:20)
[2024-07-13 06:13] VITALS: BP 122/62; TEMP 98.1; O2SAT 95
[2024-07-13] MEDS: IBUPROFEN 400MG TAB PO PRN (10:17)
[2024-07-13] MEDS: CEPACOL LOZENGE PO PRN (11:26)
[2024-07-13 15:27] VITALS: BP 131/71; TEMP 97.5; O2SAT 97
[2024-07-13] MEDS: CARIPRAZINE 3MG CAPSULE (VRAYLAR) PO SCH (21:13)
[2024-07-14 06:27] VITALS: BP 123/64; TEMP 97.5; O2SAT 100
[2024-07-14 16:41] VITALS: BP 114/69; TEMP 99.7; O2SAT 99
[2024-07-15 06:10] VITALS: BP 121/68; TEMP 97.8; O2SAT 97
[2024-07-15 15:50] VITALS: BP 156/87; TEMP 97.3; O2SAT 98
[2024-07-16 06:10] VITALS: BP 107/53; TEMP 97.6; O2SAT 100
[2024-07-16 15:02] VITALS: BP 130/85; TEMP 98.1; O2SAT 97
[2024-07-16 21:40] VITALS: BP 130/85
[2024-07-17 06:24] VITALS: BP 133/78; TEMP 97.6; O2SAT 97
[2024-07-17 15:36] VITALS: BP 141/70; TEMP 97.3; O2SAT 98
[2024-07-18 06:10] VITALS: BP 102/55; TEMP 97.2; O2SAT 97
== END 2024-07-18 08:21 | disposition home or self-care (01) | DRG 754 ==
LOC: M ED 22:41 → M ED INP 07-11 12:46 → M PSY 07-11 14:36
PROVIDERS: ADMIT Psychiatry & Neurology Psychiatry; ATTEND Psychiatry & Neurology Psychiatry
DX: F32.A Depression, unspecified (principal); R45.851 Suicidal ideations; F90.9 Attention-deficit hyperactivity disorder, unspecified type; F43.10 Post-traumatic stress disorder, unspecified; F15.10 Other stimulant abuse, uncomplicated; F12.10 Cannabis abuse, uncomplicated; R05.3 Chronic cough; Z81.3 Family history of other psychoactive substance abuse and dependence; Z81.8 Family history of other mental and behavioral disorders; F17.290 Nicotine dependence, other tobacco product, uncomplicated; J45.909 Unspecified asthma, uncomplicated; J06.9 Acute upper respiratory infection, unspecified; B97.89 Other viral agents as the cause of diseases classified elsewhere; Z91.52 Personal history of nonsuicidal self-harm; Z91.51 Personal history of suicidal behavior; Z79.899 Other long term (current) drug therapy; Z88.0 Allergy status to penicillin; Z88.8 Allergy status to other drugs, medicaments and biological substances